=== PATIENT | female | born 1945 | race Caucasian/White ===

== ENCOUNTER 2017-06-03 09:27 | Day surgery (SDC) | payer MEDICARE, OTHER ==
[2017-06-03] MEDS ORDERED: Xylocaine-Mpf 2% 5 Ml Vial IJ ONE (09:28)
[2017-06-03] MEDS ORDERED: Lactated Ringers 1,000 ML IV ONE (09:28)
[2017-06-03] MEDS ORDERED: Marcaine 0.5% SDV 10 ML IJ ONE (09:28)
[2017-06-03] MEDS ORDERED: Apresoline 25 MG TABLET PO ONE (09:28)
[2017-06-03 10:43] LABS: Hemoglobin 12.6 gm/dl (12.0-16.0); Mean Cell Volume 90.7 fl (78-100); Mean Corpuscular Hemoglobin 29.3 pg (26-32); Mean Corpuscular Hgb Concent. 32.3 g/dl (32-36); Mean Platelet Volume 10.3 fl (6-9.5); Platelet Count 302 K/mm3 (150-450); Red Cell Distribution Width 13.9 % (11.5-14.0)
[2017-06-03 10:59] LABS: INR 1.02 (0.8-3.0)
--- NOTE | 2017-06-03 14:54 | XRAY ---
20 seconds fluoroscopy time in surgery for right side L3, L4 MBB.
--- NOTE | 2017-06-03 14:54 | XRAY ---
Indication: Right L3 and L4 MBB. Intraoperative fluoroscopy was provided for 20 seconds. 2 digital spot images submitted for interpretation demonstrates posterior spinal needle tips projecting over the expected course of the right L3 and L4 nerve roots. Correlate with intraoperative findings/report.
--- NOTE | 2017-06-04 08:28 | OP ---
DATE OF PROCEDURE: 06/03/2017 1228 SURGEON: Aminata Stallworth D.O. PREOPERATIVE DIAGNOSIS: Degenerative lumbar spine disease, spondylosis, low back pain. POSTOPERATIVE DIAGNOSIS: Degenerative lumbar spine disease, spondylosis, low back pain. PROCEDURE PERFORMED: Right L4-L3 medial branch block under fluoroscopic guidance. DESCRIPTION OF THE PROCEDURE: The patient was taken to the operating room and placed in the prone position on the table. Skin at the injection site was prepped and draped in sterile fashion. Under fluoroscopy, bony anatomy of the targeted injection site was visualized. Induction agent was given as per anesthesia while vital signs were monitored. Local anesthetic agent of 0.5 cc of 1% lidocaine preservative free was introduced to anesthetize the skin and the subcutaneous tissue through the injection site. Under fluoroscopic guidance, a #20 gauge standard spinal needle was advanced into the target medial branch through the oblique approach. The preservative free 0.5 cc of 1% lidocaine and 0.5 cc of 0.25% Marcaine were injected into each of the targeted medial branch nerve. After the needle was being removed, the skin was cleansed with alcohol and then a bandage was applied. No complications or adverse consequences were observed. The patient was returned to the holding area until stabilized before discharge to home. The self-reported preoperative pain level was 9 out of 10 and postoperative pain level is 0 out of 10. The patient will be followed up within ten days after the injection for re-evaluation.
== END 2017-06-03 13:55 | disposition home or self-care (01) ==
LOC: SDC-PAIN 09:27
PROVIDERS: ATTEND Internal Medicine
DX: M46.96 Unspecified inflammatory spondylopathy, lumbar region (principal); M51.36 Other intervertebral disc degeneration, lumbar region; M51.16 Intervertebral disc disorders with radiculopathy, lumbar region; Z79.891 Long term (current) use of opiate analgesic
CPT/HCPCS: 36415; 64493; 64494; 72020; 77003; 85027; 85610; 85730; A9270-GY

== ENCOUNTER 2017-07-29 09:36 | Day surgery (SDC) | payer MEDICARE, OTHER ==
[2017-07-29] MEDS ORDERED: Marcaine 0.5% SDV 10 ML IJ ONE (09:37)
[2017-07-29] MEDS ORDERED: Xylocaine 1% Vial 30 ML PF IJ ONE (09:37)
[2017-07-29] MEDS ORDERED: DIPRIVAN 200 MG/20 ML IV ONE (09:37)
[2017-07-29] MEDS ORDERED: Lactated Ringers 1,000 ML IV ONE (09:37)
[2017-07-29 11:01] LABS: INR 0.97 (0.8-3.0)
[2017-07-29 11:03] LABS: Hematocrit 39.3 % (35-47); Hemoglobin 12.7 gm/dl (12.0-16.0); Mean Cell Volume 90.3 fl (78-100); Mean Corpuscular Hemoglobin 29.2 pg (26-32); Mean Corpuscular Hgb Concent. 32.3 g/dl (32-36); Mean Platelet Volume 10.7 fl (6-9.5); Platelet Count 379 K/mm3 (150-450); Red Blood Count 4.35 M/mm3 (4.1-5.4); Red Cell Distribution Width 14.6 % (11.5-14.0); White Blood Count 11.3 K/mm3 (4.0-10.5)
[2017-07-29 11:04] LABS: PTT 31.5 SECONDS (25.3-37.0)
--- NOTE | 2017-07-29 14:21 | XRAY ---
17 seconds fluoroscopy time in surgery for right L4-5MBB.
--- NOTE | 2017-07-29 14:27 | XRAY ---
Indication: Right L4-L5 MBB. Intraoperative fluoroscopy was provided for 17 seconds. 3 digital spot images submitted for interpretation demonstrates posterior spinal needle tips projecting over the right L3-L4 and L4-L5 facets. Correlate with intraoperative findings/report.
--- NOTE | 2017-07-30 10:07 | OP ---
DATE OF PROCEDURE: 07/29/2017 1157 SURGEON: Aminata Stallworth D.O. PREOPERATIVE DIAGNOSIS: Degenerative lumbar spine disease, spondylosis, low back pain. POSTOPERATIVE DIAGNOSIS: Degenerative lumbar spine disease, spondylosis, low back pain. PROCEDURE PERFORMED: Right L4-L3 medial branch block under fluoroscopic guidance, second time. DESCRIPTION OF THE PROCEDURE: The patient was taken to the operating room and placed in the prone position on the table. Skin at the injection site was prepped and draped in sterile fashion. Under fluoroscopy, bony anatomy of the targeted injection site was visualized. Induction agent was given as per anesthesia while vital signs were monitored. Local anesthetic agent of 10 cc of 1% lidocaine preservative-free and 1 cc of 0.5% preservative-free Marcaine were injected into each of the targeted medial branch nerve to anesthetize the skin and the subcutaneous tissue through the injection site. Under fluoroscopic guidance, a #20 gauge standard spinal needle was advanced into the target medial branch through the oblique approach. After the needle was being removed, the skin was cleansed with alcohol and then a bandage was applied. No complications or adverse consequences were observed. The patient was returned to the holding area until stabilized before discharge to home. Preoperative pain level is 10 out of 10 and postoperative pain level is 0 out of 10. The patient will be followed up within ten days after the injection for re-evaluation.
== END 2017-07-29 12:34 | disposition home or self-care (01) ==
LOC: SDC-PAIN 09:36
PROVIDERS: ATTEND Internal Medicine
DX: M46.96 Unspecified inflammatory spondylopathy, lumbar region (principal); M51.36 Other intervertebral disc degeneration, lumbar region; M51.16 Intervertebral disc disorders with radiculopathy, lumbar region; M54.5 Low back pain
CPT/HCPCS: 36415; 64493; 64494; 72020; 77003; 85027; 85610; 85730; J2001; J2704

== ENCOUNTER 2017-08-19 11:34 | Day surgery (SDC) | payer MEDICARE, OTHER ==
[2017-08-19] MEDS ORDERED: XYLOCAINE-MPF 1% 5ML SDV IJ ONE (11:35)
[2017-08-19] MEDS ORDERED: Marcaine Mpf 0.5% Vial 30 Ml IJ ONE (11:35)
[2017-08-19] MEDS ORDERED: DIPRIVAN 200 MG/20 ML IV ONE (11:35)
[2017-08-19] MEDS ORDERED: Lactated Ringers 1,000 ML IV ONE (13:11)
[2017-08-19 13:23] LABS: Hematocrit 36.5 % (35-47); Hemoglobin 11.7 gm/dl (12.0-16.0); INR 1.01 (0.8-3.0); Mean Cell Volume 90.6 fl (78-100); Mean Corpuscular Hgb Concent. 32.1 g/dl (32-36); Mean Platelet Volume 10.8 fl (6-9.5); Platelet Count 265 K/mm3 (150-450); Red Blood Count 4.03 M/mm3 (4.1-5.4); Red Cell Distribution Width 14.7 % (11.5-14.0); White Blood Count 7.6 K/mm3 (4.0-10.5)
--- NOTE | 2017-08-19 19:02 | XRAY ---
Exam: Single view spine from 08/19/2017. Comparison: Single view spine from 07/29/2017. Indication: Right L4-L5 RFA. Findings: 19 seconds of intraoperative fluoroscopy time was utilized with the C-arm. There appear to be 2 PA images, one slightly oblique PA image, and a lateral image of the lower lumbar spine. Moderate degenerative disc disease is seen at both L4-L5 and L5-S1. Minimal retrolisthesis of L4 with respect to both L3 and L5 is seen on the lateral radiograph. The spinal needles are seen projected over the projection of the exiting right L3 and L4 nerve roots on the PA images. However, on the lateral C-arm image, the needle tips are in the projection of the posterior aspect of the L3-L4 and L4-L5 facet joints. Please correlate with intraoperative findings/report..
--- NOTE | 2017-08-20 08:05 | XRAY ---
19 seconds fluoroscopy time in surgery for right L4-5 RFA.
--- NOTE | 2017-08-20 09:22 | OP ---
DATE OF PROCEDURE: 08/19/2017 1353 SURGEON: Aminata Stallworth D.O. PREOPERATIVE DIAGNOSES: Degenerative lumbosacral spine disease, spondylosis, low back pain. POSTOPERATIVE DIAGNOSES: Degenerative lumbosacral spine disease, spondylosis, low back pain. PROCEDURE PERFORMED: Right L4-L3 medial branch radiofrequency ablation under fluoroscopic guidance. The medication used for this procedure is 2 cc preservative-free 0.5% Marcaine. The local anesthetic agent used is 3 cc preservative-free 1% lidocaine. DESCRIPTION OF PROCEDURE: The patient was taken to the operating room and laid in the prone position on the table. The skin over the injection site was prepped and draped in sterile fashion. Under fluoroscopy bony anatomy of the target injection site was visualized. Induction agent was given as per anesthesia while vital signs were monitored. Local anesthetic agent was introduced to anesthetize the skin and the subcutaneous tissue through the injection site. Under fluoroscopic guidance a standard size spinal needle with cannula was advanced into the target medial branch nerve as per standard protocol. Before the radiofrequency ablation motor and sensory nerve testing was conducted as per protocol. Under the safety guidance which ensured no motor nerves being involved, radiofrequency ablation was conducted at 80 degrees C for 90 seconds as per standard protocol. After the spinal needle with the cannula was removed the skin was cleansed with alcohol and then a bandage was applied. No complications or adverse occurrences were observed. Preoperative pain level is 10 out of 10 and the postoperative pain level is 0 out of 10. The patient was returned to the holding area until stabilized before being discharged to home. The patient will be followed up within 10 days after the procedure for re-evaluation.
== END 2017-08-19 14:40 | disposition home or self-care (01) ==
LOC: SDC-PAIN 11:34
PROVIDERS: ATTEND Internal Medicine
DX: M54.5 Low back pain (principal); M46.96 Unspecified inflammatory spondylopathy, lumbar region; M51.36 Other intervertebral disc degeneration, lumbar region; M47.816 Spondylosis without myelopathy or radiculopathy, lumbar region; Z79.891 Long term (current) use of opiate analgesic
CPT/HCPCS: 36415; 64635; 64636; 72020; 77003; 85027; 85610; 85730; 99100; J2704

== ENCOUNTER 2018-04-28 10:35 | Day surgery (SDC) | payer MEDICARE, OTHER ==
[2018-04-28] MEDS ORDERED: Marcaine 0.5% SDV 10 ML IJ ONE (10:36)
[2018-04-28] MEDS ORDERED: Xylocaine 1% Vial 30 ML PF IJ ONE (10:36)
[2018-04-28] MEDS ORDERED: DIPRIVAN 200 MG/20 ML IV ONE (10:36)
[2018-04-28] MEDS ORDERED: Lactated Ringers 1,000 ML IV ONE (12:05)
--- NOTE | 2018-04-28 14:43 | XRAY ---
Indication: Ganglion nerve block. Intraoperative fluoroscopy was provided for 12 seconds. Single lateral digital spot image submitted for interpretation demonstrates posterior spinal needle tip projecting just anterior to the coccyx. Small amount of contrast injected for needle tip placement. Correlate with intraoperative findings/report.
--- NOTE | 2018-04-28 15:19 | XRAY ---
12 seconds fluoroscopy time in surgery for ganglion impar nerve block.
== END 2018-04-28 13:03 | disposition home or self-care (01) ==
LOC: SDC-PAIN 10:35
PROVIDERS: ATTEND Psychiatry & Neurology Pain Medicine
DX: M53.3 Sacrococcygeal disorders, not elsewhere classified (principal); M54.5 Low back pain; I10 Essential (primary) hypertension
CPT/HCPCS: 64520; 72020; 77002; 99100; J2001; J2704; Q9966

== ENCOUNTER 2018-05-26 09:25 | Day surgery (SDC) | payer MEDICARE, OTHER ==
[2018-05-26] MEDS ORDERED: DIPRIVAN 200 MG/20 ML IV ONE (09:26)
[2018-05-26] MEDS ORDERED: Depo-Medrol 40 MG/ML IM ONE (09:26)
[2018-05-26] MEDS ORDERED: Sodium Chloride 0.9(Preservative Free) 10 ML IJ ONE (09:26)
[2018-05-26] MEDS ORDERED: Ketamine HCl 50 MG/ML IV ONE (09:26)
[2018-05-26] MEDS ORDERED: Lactated Ringers 1,000 ML IV ONE (11:30)
--- NOTE | 2018-05-26 12:26 | XRAY ---
Indication: Left L4-S1 and right L5-S1 ELSIE. Intraoperative fluoroscopy was provided for 1.2 minute. 4 digital spot images submitted for interpretation demonstrates posterior needle tips projecting over the expected course of the left L4 and right L4/L5 nerve roots. Small amount of contrast injected for needle tip placement. Correlate with intraoperative findings/report.
--- NOTE | 2018-05-26 12:55 | XRAY ---
1.2 minutes fluoroscopy time in surgery for L4-S1 ELSIE on the right and L5-S1 on the left.
== END 2018-05-26 11:29 | disposition home or self-care (01) ==
LOC: SDC-PAIN 09:25
PROVIDERS: ATTEND Psychiatry & Neurology Pain Medicine
DX: M47.817 Spondylosis without myelopathy or radiculopathy, lumbosacral region (principal); M54.16 Radiculopathy, lumbar region; I10 Essential (primary) hypertension; Z79.899 Other long term (current) drug therapy
CPT/HCPCS: 64483; 64484; 72020; 77003; 99100; J1030; J2704; Q9967

== ENCOUNTER 2018-07-21 10:26 | Day surgery (SDC) | payer MEDICARE, OTHER ==
[2018-07-21] MEDS ORDERED: Xylocaine 1% Vial 30 ML PF IJ ONE (10:27)
[2018-07-21] MEDS ORDERED: Depo-Medrol 40 MG/ML IM ONE (10:27)
[2018-07-21] MEDS ORDERED: Sodium Chloride 0.9(Preservative Free) 10 ML IJ ONE (10:27)
[2018-07-21] MEDS ORDERED: DIPRIVAN 200 MG/20 ML IV ONE (10:27)
[2018-07-21] MEDS ORDERED: Ketamine HCl 50 MG/ML IJ ONE (10:27)
--- NOTE | 2018-07-21 14:43 | XRAY ---
Indication: Caudal ELSIE. Intraoperative fluoroscopy was provided for 23 seconds. 2 digital spot images submitted for interpretation demonstrates midline needle tip just posterior to the distal sacrum. Small amount of contrast injected for needle tip placement. Correlate with intraoperative findings/report.
--- NOTE | 2018-07-21 14:51 | XRAY ---
23 seconds of fluoroscopy was used in surgery for a caudal ELSIE.
[2018-07-21] MEDS ORDERED: Lactated Ringers 1,000 ML IV ONE (14:55)
== END 2018-07-21 12:47 | disposition home or self-care (01) ==
LOC: SDC-PAIN 10:26
PROVIDERS: ATTEND Psychiatry & Neurology Pain Medicine
DX: M54.16 Radiculopathy, lumbar region (principal); I25.10 Atherosclerotic heart disease of native coronary artery without angina pectoris; I10 Essential (primary) hypertension; K21.9 Gastro-esophageal reflux disease without esophagitis; E78.00 Pure hypercholesterolemia, unspecified; Z79.899 Other long term (current) drug therapy
CPT/HCPCS: 62323; 72100; 77003; J1030; J2001; J2704; Q9966